=== PATIENT | female | born 1945 | race Caucasian/White ===

== ENCOUNTER 2019-01-17 11:07 | Emergency (ER) | payer MEDICARE ==
[2019-01-17 11:35] LABS: #Eosinphils 0.1 thou/uL (0.0-0.7); #Monocytes 0.4 thou/uL (0.11-0.59); #Neutrophils 4.8 thou/uL (1.40-6.50); %Basophils 0.3 % (0.0-1.0); %Eosinophils 1.8 % (0.0-10.0); %Lymphocytes 26.6 % (21.0-51.0); %Monocytes 5.6 % (0.0-10.0); %Neutrophils 65.7 % (42.0-75.0); Hemoglobin 14.7 g/dL (12.0-16.0); Mean Corpuscular HGB CONC 33.3 g/dL (32.0-36.0); Mean Corpuscular Hemoglobin 30.9 pg (27.0-31.0); Mean Corpuscular Volume 92.8 fL (78.0-98.0); Mean Platelet Volume 7.3 fL (7.4-10.4); Platelet Count 308 thou/uL (130-400); RBC Distribution Width 11.8 % (11.5-14.5); Red Blood Cell (RBC) Count 4.76 mill/uL (4.20-5.40); White Blood Cell (WBC) Count 7.4 thou/uL (4.8-10.8)
[2019-01-17 12:07] LABS: ALT (SGPT) 13 U/L (8-55); AST (SGOT) 16 U/L (5-34); Albumin 4.9 g/dL (3.4-4.8); Alkaline Phosphatase 95 U/L (40-150); Anion Gap 17 mmol/L (10-20); BUN (Urea Nitrogen) 12 mg/dL (9.8-20.1); Bilirubin, Total 0.7 mg/dL (0.2-1.2); CK (CPK) 79 U/L (29-168); Calc. Creatinine Clearance 0 mL/min (70-130); Calcium 10.5 mg/dL (7.8-10.44); Carbon Dioxide 23 mmol/L (23-31); Estimated GFR-MDRD 71; Globulin 3.2 g/dL (2.4-3.5); Glucose 109 mg/dL (83-110); Protein, Total 8.1 g/dL (6.0-8.3)
[2019-01-17 12:25] LABS: Chloride 104 mmol/L (98-107); Potassium 3.8 mmol/L (3.5-5.1); Sodium 139 mmol/L (136-145)
== END 2019-01-17 12:38 | disposition home or self-care (01) ==
LOC: ERS 11:07
DX: R20.2 Paresthesia of skin (principal); R25.1 Tremor, unspecified; E03.9 Hypothyroidism, unspecified; E78.2 Mixed hyperlipidemia; I10 Essential (primary) hypertension; Z79.899 Other long term (current) drug therapy; Z79.82 Long term (current) use of aspirin
CPT/HCPCS: 80053; 82550; 84484; 85025; 93005; 94760

== ENCOUNTER 2019-02-25 10:18 | Outpatient (CLI) | payer MEDICARE ==
[2019-02-25 11:42] LABS: #Eosinphils 0.2 thou/uL (0.0-0.7); #Lymphocytes 1.7 thou/uL (1.20-3.40); #Monocytes 0.3 thou/uL (0.11-0.59); %Basophils 0.5 % (0.0-1.0); %Eosinophils 3.7 % (0.0-10.0); %Lymphocytes 31.8 % (21.0-51.0); %Monocytes 6.4 % (0.0-10.0); %Neutrophils 57.5 % (42.0-75.0); Hemoglobin 13.6 g/dL (12.0-16.0); Mean Corpuscular HGB CONC 32.5 g/dL (32.0-36.0); Mean Corpuscular Hemoglobin 30.2 pg (27.0-31.0); Mean Corpuscular Volume 92.8 fL (78.0-98.0); Mean Platelet Volume 7.3 fL (7.4-10.4); Platelet Count 259 thou/uL (130-400); RBC Distribution Width 11.3 % (11.5-14.5); Red Blood Cell (RBC) Count 4.49 mill/uL (4.20-5.40); White Blood Cell (WBC) Count 5.2 thou/uL (4.8-10.8)
[2019-02-25 11:48] LABS: INR-International Normal Ratio 0.9; PTT 32.3 SEC (22.9-36.1); Prothrombin Time 12.4 SEC (12.0-14.7)
[2019-02-25 12:23] LABS: ALT (SGPT) 12 U/L (8-55); AST (SGOT) 13 U/L (5-34); Albumin 4.3 g/dL (3.4-4.8); Alkaline Phosphatase 83 U/L (40-150); Anion Gap 12 mmol/L (10-20); BUN (Urea Nitrogen) 14 mg/dL (9.8-20.1); Bilirubin, Total 0.6 mg/dL (0.2-1.2); Calc. Creatinine Clearance 0 mL/min (70-130); Calcium 9.4 mg/dL (7.8-10.44); Carbon Dioxide 26 mmol/L (23-31); Chloride 104 mmol/L (98-107); Estimated GFR-MDRD 72; Globulin 2.9 g/dL (2.4-3.5); Glucose 93 mg/dL (83-110); Potassium 4.1 mmol/L (3.5-5.1); Protein, Total 7.2 g/dL (6.0-8.3); Sodium 138 mmol/L (136-145)
== END 2019-02-25 10:19 | disposition home or self-care (01) ==
LOC: LABBT 10:18
PROVIDERS: ATTEND Internal Medicine Cardiovascular Disease
DX: Z01.812 Encounter for preprocedural laboratory examination (principal); R94.39 Abnormal result of other cardiovascular function study
CPT/HCPCS: 80053; 85025; 85610; 85730

== ENCOUNTER → 2019-03-04 | Day surgery (SDC) | payer MEDICARE ==
[2019-02-25 10:34] VITALS: BMI 22.8
[~2019-03-04] MED LIST: Fentanyl 100 MCG/2 ML VIAL ONE; Iopamidol 370 76% 100 ML VIAL ONE; Lidocaine 1% (PF) 30 ML VIAL ONE; Midazolam HCl 2 mg/2 ml Vial ONE
== END ==
LOC: CCL 05:51
PROVIDERS: ATTEND Internal Medicine Cardiovascular Disease
PROC: 4A023N7 Measurement of Cardiac Sampling and Pressure, Left Heart, Percutaneous Approach (ICD-10-PCS; principal; 2019-03-04)
PROC: B2111ZZ Fluoroscopy of Multiple Coronary Arteries using Low Osmolar Contrast (ICD-10-PCS; 2019-03-04)
DX: I25.10 Atherosclerotic heart disease of native coronary artery without angina pectoris (principal); I10 Essential (primary) hypertension; I73.9 Peripheral vascular disease, unspecified; I44.7 Left bundle-branch block, unspecified; Z87.891 Personal history of nicotine dependence; Z79.82 Long term (current) use of aspirin; Z79.899 Other long term (current) drug therapy; Z91.040 Latex allergy status; Z91.041 Radiographic dye allergy status; Z91.048 Other nonmedicinal substance allergy status
CPT/HCPCS: 93458; 99152; 99153; C1769; J1644; J2001; J2250; J3010; Q9967

== ENCOUNTER 2022-11-13 12:34 | Outpatient (CLI) | payer MEDICARE | END 2022-11-13 12:35 | disposition home or self-care (01) | LOC: ULT 12:34 | PROVIDERS: ATTEND Internal Medicine | DX: R06.00 Dyspnea, unspecified (principal); I51.9 Heart disease, unspecified; I51.7 Cardiomegaly; I34.81 Nonrheumatic mitral (valve) annulus calcification; I34.0 Nonrheumatic mitral (valve) insufficiency; I35.8 Other nonrheumatic aortic valve disorders | CPT/HCPCS: 93306 ==

== ENCOUNTER 2024-09-18 13:26 | Outpatient (CLI) | payer MEDICARE ==
[2024-09-18] MEDS ORDERED: Iopamidol 370 76% 100 ML VIAL ONE (13:55)
== END 2024-09-18 13:27 | disposition home or self-care (01) ==
LOC: SJX 13:26
PROVIDERS: ATTEND Internal Medicine Cardiovascular Disease
DX: I77.9 Disorder of arteries and arterioles, unspecified (principal); I65.21 Occlusion and stenosis of right carotid artery
CPT/HCPCS: 36415; 70498; 82565; Q9967

== ENCOUNTER 2024-10-06 15:00 | Inpatient (IN) | payer MEDICARE ==
[2024-10-10] MEDS ORDERED: Heparin 5,000 UNITS/ML VIAL ONE (09:06)
[2024-10-10] MEDS ORDERED: Bupivacaine PF 0.5% 30 ML VIAL ONE (09:06)
[2024-10-10] MEDS ORDERED: EPINEPHrine 1 MG/ML VIAL ONE (09:06)
[2024-10-10] MEDS ORDERED: Lidocaine 2% PF 5 ML VIAL ONE (09:23)
[2024-10-10] MEDS ORDERED: fentaNYL PF 100 MCG/2 ML SYRINGE ONE (09:31)
[2024-10-10] MEDS ORDERED: Ondansetron PF 4 MG/2 ML Vial ONE (09:31)
[2024-10-10] MEDS ORDERED: Rocuronium Bromide 10 MG/ML (10ML VIAL) ONE (09:31)
[2024-10-10] MEDS ORDERED: Dexamethasone 20 MG/5 ML VIAL ONE (09:31)
[2024-10-10] MEDS ORDERED: Lidocaine 1% PF 5 ML VIAL ONE (09:31)
[2024-10-10] MEDS ORDERED: PROPOFOL 20 ML ONE (09:31)
[2024-10-10] MEDS ORDERED: CEFAZOLIN 2 GM VIAL ONE (10:20)
[2024-10-10] MEDS ORDERED: Midazolam HCl 2 mg/2 ml Vial ONE (10:20)
[2024-10-10] MEDS ORDERED: Phenylephrine 10 MG/ML VIAL ONE (10:45)
[2024-10-10] MEDS ORDERED: Sodium Chloride 0.9% 250 ML 250 ML ONE (10:45)
[2024-10-10] MEDS ORDERED: PHENYLEPHRINE-NS 100 MCG/ML 10 ML SYRINGE ONE (10:47)
[2024-10-10] MEDS ORDERED: Heparin 10,000 UNITS/ 10 ML VIAL ONE (10:56)
[2024-10-10] MEDS ORDERED: Protamine Sulfate 50 MG/5 ML VIAL ONE (11:20)
[2024-10-10] MEDS ORDERED: SUGAMMADEX SODIUM 200 MG/2 ML VIAL ONE (11:24)
[2024-10-10] MEDS ORDERED: Ondansetron PF 4 MG/2 ML Vial IVP PRN (11:54)
[2024-10-10] MEDS ORDERED: hydrALAZINE 20 MG/ML VIAL SLOW IVP PRN (11:54)
[2024-10-10] MEDS ORDERED: Ipratropium/Albuterol 3 ML NEB NEB PRN (11:54)
[2024-10-10] MEDS ORDERED: Phenylephrine 40 MG/NS 250 ML 250 ML IVPB PRN (11:54)
[2024-10-10] MEDS ORDERED: fentaNYL 50 mcg/mL 1 mL Vial SLOW IVP PRN (11:54)
[2024-10-10] MEDS ORDERED: traMADol HCl 50 MG TAB PO PRN (11:54)
[2024-10-10] MEDS ORDERED: Acetaminophen 325 MG TAB PO PRN (11:54)
[2024-10-10] MEDS ORDERED: Nitroglycerin 50 MG/250 ML BOT 250 ML IVPB PRN (11:54)
[2024-10-10] MEDS: Sodium Chloride 0.9% 1,000 ML IV SCH (13:22)
[2024-10-10 13:23] VITALS: BMI 23.6
[2024-10-10] MEDS: CEFAZOLIN 2 GM in Sodium Chloride 0.9% 100 ML IVPB SCH (17:59)
[2024-10-10 21:12] VITALS: BP 117/51
[2024-10-10] MEDS: Oxybutynin 5 MG TAB PO SCH (21:12)
[2024-10-10] MEDS: Amlodipine 10 MG TAB PO SCH (21:12)
[2024-10-10] MEDS: Losartan 25 MG TAB PO SCH (21:12)
[2024-10-11] MEDS: Levothyroxine Sodium 100 MCG TAB PO SCH (05:39)
[2024-10-11 08:37] VITALS: TEMP 98.7
[2024-10-11] MEDS: Aspirin 81 mg Enteric Coated Tablet PO SCH (09:22)
== END 2024-10-11 10:30 | disposition home or self-care (01) | DRG 39 ==
LOC: SURG A 10-10 08:15 → CCU 10-10 12:59
PROVIDERS: ADMIT Thoracic Surgery (Cardiothoracic Vascular Surgery); ATTEND Thoracic Surgery (Cardiothoracic Vascular Surgery)
PROC: 03CM0ZZ Extirpation of Matter from Right External Carotid Artery, Open Approach (ICD-10-PCS; principal; 2024-10-10)
PROC: 03UM0KZ Supplement Right External Carotid Artery with Nonautologous Tissue Substitute, Open Approach (ICD-10-PCS; 2024-10-10)
PROC: 3E033XZ Introduction of Vasopressor into Peripheral Vein, Percutaneous Approach (ICD-10-PCS; 2024-10-10)
DX: I65.23 Occlusion and stenosis of bilateral carotid arteries (principal); E03.9 Hypothyroidism, unspecified; E78.00 Pure hypercholesterolemia, unspecified; I10 Essential (primary) hypertension; Z88.8 Allergy status to other drugs, medicaments and biological substances; Z79.890 Hormone replacement therapy; Z79.899 Other long term (current) drug therapy; Z79.82 Long term (current) use of aspirin
CPT/HCPCS: C1768; J0171; J0665; J1100; J1642; J1644; J2250; J2371; J2405; J2704; J2720; J7030; J7050